=== PATIENT | male | born 1965 | race Caucasian/White ===

== ENCOUNTER 2017-07-30 12:09 | Emergency (ER) | payer OTHER ==
[~2017-07-30] VITALS: Ht 165.1 cm; Wt 79.0 kg
[2017-07-30 12:20] VITALS: BP 130/88
--- NOTE | 2017-07-30 13:12 | NUR ---
52M BIB FAMILY C/O POSSIBLE BLOOD CLOTT IN RT CALF (BETWEEN RT KNEE AND RT ANKLE). PT STATES WAS IN TC 2 DAYS AGO, WENT TO URGENT CARE, WAS TOLD PT HAD BLOOD CLOTT THROUGH BLOOD WORK, AND SENT TO ER FOR ULTRA SOUND TO CONFIRM BLOOD CLOTT. HX: PT DENIES RX: PT DENIES; DENIES N/V/D; SKIN IS PINK/WARM/DRY; AAOX4 WITH EVEN AND STEADY GAIT; LUNGS CLEAR BL; HR EVEN AND REGULAR; PT DENIES ANY FEVER, CP, SOB, OR COUGH AT THIS TIME; PATIENT STATES PAIN OF 0/10 AT THIS TIME; VSS; PATIENT POSITIONED FOR COMFORT; HOB ELEVATED; BEDRAILS UP X2; BED DOWN. ER MD MADE AWARE OF PT STATUS.
[2017-07-30 13:19] VITALS: BP 120/83
--- NOTE | 2017-07-30 13:19 | NUR ---
Patient discharged with v/s stable. Written and verbal after care instructions given and explained. Patient alert, oriented and verbalized understanding of instructions. Ambulatory with steady gait. All questions addressed prior to discharge. ID band removed. Patient advised to follow up with PMD. Rx of ROBAXIN, TRAMADOL, MOTRIN given. Patient educated on indication of medication including possible reaction and side effects. Opportunity to ask questions provided and answered.
== END 2017-07-30 13:19 | disposition home or self-care (01) ==
LOC: MED 12:09
DX: M79.604 Pain in right leg (principal)
CPT/HCPCS: 93971; 99284; Q0092

== ENCOUNTER 2021-10-08 09:19 | Emergency (ER) | payer OTHER ==
[~2021-10-08] VITALS: Ht 165.1 cm; Wt 79.4 kg
[2021-10-08 09:23] VITALS: BP 151/104
--- NOTE | 2021-10-08 09:36 | NUR ---
Patient ambulated to bed 02 with steady/even gait.
--- NOTE | 2021-10-08 09:40 | NUR ---
56 y/o M BIB self from home c/o intermittent dizziness, nausea since Thursday. Patient A&Ox4, ambulatory, reports drinking 3 shots of tequila on Thursday night and had an acute onset of dizziness while laying in bed. Describes dizziness as "head spinning." Pt also states numbness around bridge of nose/eyes. NIHSS 0. Pt states nausea yesterday without vomiting. Reports dizziness has not improved since onset; states worsens when getting up suddenly, alleviates with rest. Pt denies fall, injury, chest pain, SOB, headache, blurry vision, unsteady gait. Denies mediations prior to arrival. BP: 132/86. Bed locked in lowest position, side rails x 1. PMH/Sx/Meds: Denies NKDA
--- NOTE | 2021-10-08 10:15 | NUR ---
Dr. Hancock is evaluating pt at bedside
[2021-10-08] MEDS ORDERED: MECLIZINE 25 MG TAB PO ONE (10:25)
[2021-10-08] MEDS ORDERED: ONDANSETRON 4 MG ODT PO ONE (10:25)
--- NOTE | 2021-10-08 10:57 | NUR ---
Patient assisted from laying to sitting > standing position, states "It feels a lot better now." Pt denies nausea. Dr. Hancock made aware.
[2021-10-08] MEDS ORDERED: ONDA-188 PO (11:08)
[2021-10-08] MEDS ORDERED: MECL-303 PO (11:08)
[2021-10-08 11:10] VITALS: BP 118/77
--- NOTE | 2021-10-08 11:15 | NUR ---
Patient discharged with v/s stable. Written and verbal after care instructions given and explained. Patient alert, oriented and verbalized understanding of instructions. Ambulatory with steady gait. All questions addressed prior to discharge. ID band removed. Patient advised to follow up with PMD. Rx of Meclizine, Zofran ODT given. Patient educated on indication of medication including possible reaction and side effects. Opportunity to ask questions provided and answered.
== END 2021-10-08 11:15 | disposition home or self-care (01) ==
LOC: MED 09:19
DX: R42 Dizziness and giddiness (principal)
CPT/HCPCS: 99283; J8597; Q0162